=== PATIENT | female | born 1965 | race Two or more races ===

== ENCOUNTER 2023-05-04 06:00 | Day surgery (SDC) | payer OTHER ==
[~2023-05-04 06:00] MED LIST: COZAAR25 MG PO; CRESTOR5 MG PO
[2023-05-04] MEDS ORDERED: MIRALAX510 GM PO (12:43)
[2023-05-04] MEDS ORDERED: CIPRO500 MG PO (12:43)
[2023-05-04] MEDS ORDERED: PERCOCET 5-3251 EACH PO (12:43)
[2023-05-04] MEDS ORDERED: SURFAK240 M1 PO (12:43)
[2023-05-04] MEDS ORDERED: IBU600 MG PO (12:44)
== END 2023-05-04 16:20 | disposition home or self-care (01) ==
LOC: CIR.AMB 06:00
PROVIDERS: ATTEND Surgery
DX: K80.10 Calculus of gallbladder with chronic cholecystitis without obstruction (principal); K42.9 Umbilical hernia without obstruction or gangrene; K76.0 Fatty (change of) liver, not elsewhere classified; Z20.822 Contact with and (suspected) exposure to COVID-19; E66.9 Obesity, unspecified